=== PATIENT | female | born 1960 | race Two or more races ===

== ENCOUNTER → 2019-05-19 | Day surgery (SDC) | payer BC ==
[2019-05-16 09:28] LABS: Basophils # (auto) 0 uL; Basophils % (auto) 0.7 % (0.0-2.0); Eosinophils # (auto) 0.2 uL; Eosinophils % (auto) 6.1 % (0.0-7.0); Hematocrit 38.4 % (36.0-46.0); Hemoglobin 12.8 g/dL (12.2-16.2); Lymphocytes # (auto) 0.7 uL; Lymphocytes % (auto) 24.9 % (10.0-50.0); Mean Corpuscular Hemoglobin 30.8 pg (28.0-32.0); Mean Corpuscular Hgb Conc. 33.3 g/dL (32.0-36.0); Mean Corpuscular Volume 92.7 fL (80.0-100.0); Monocytes # (auto) 0.2 uL; Monocytes % (auto) 6.5 % (0.0-12.0); Neutrophils # (auto) 1.8 uL; Neutrophils % (auto) 61.8 % (37.0-80.0); Platelet Count (auto) 204 10^3/uL (140-450); Red Blood Cells 4.14 10^6/uL (4.0-5.20); Red Cell Distribution Width 13.7 % (11.8-14.3); White Blood Cell 2.8 10^3/uL (4.4-10.8)
[2019-05-16 09:30] LABS: Urine Bacteria NONE SEEN /hpf (None Seen); Urine Blood Negative /uL (Negative); Urine Mucus FEW (None Seen); Urine Specific Gravity 1.026 (1.001-1.035); Urine WBC 1 /hpf (0 - 5)
[2019-05-16 09:38] LABS: INR 1.06 (0.9-1.15); Partial Thromboplastin Time 27.5 sec (23.64-32.05)
[2019-05-16 10:51] LABS: Potassium 4.2 mmol/L (3.5-5.1)
[2019-05-16 10:58] LABS: BUN/Creatinine Ratio 35.4; Bilirubin, Total 0.5 mg/dL (0.2-1.0); Calcium 9.6 mg/dL (8.5-10.1); Total Protein 7.6 g/dL (6.4-8.2)
[~2019-05-19] VITALS: Ht 160 cm; Wt 51.3 kg
[~2019-05-19] MED LIST: BUPIVACAINE 0.25% INJ 50ML VIAL ONE; DexAMETHasone SOD PHOS 10MG/1ML VIAL INJ ONE; KETOROLAC TROMETH 30 MG/ML 1ML VIAL IV ONE; LABETALOL HCL 5 MG/ML 4ML SYRINGE IV PRN; MEPERIDINE HCL (25 MG/ML) 1ML VIAL ONE; MIDAZOLAM HCL 1MG/1ML-2 ML VIAL IV PRN; MIDAZOLAM HCL 1MG/1ML-2 ML VIAL ONE; MORPHINE SULFATE 4 MG/ML SYR/VIAL IV PRN; ONDANSETRON HCL 4 MG/2 ML VIAL IV PRN; ONDANSETRON HCL 4 MG/2 ML VIAL ONE; PROPOFOL 10 MG/ML 20 ML IV ONE; ceFAZolin 1GM/50ML 50 ML IV ONE; ePHEDrine SULFATE 50 MG/ML AMP IV PRN; fentaNYL CITRATE 100 MCG/2 ML VL ONE
[2019-05-19 11:49] VITALS: BP 121/67
== END | disposition home or self-care (01) ==
LOC: SUR 07:01
PROVIDERS: ATTEND Orthopaedic Surgery
DX: T84.84XA Pain due to internal orthopedic prosthetic devices, implants and grafts, initial encounter (principal); S82.841S Displaced bimalleolar fracture of right lower leg, sequela; D64.9 Anemia, unspecified; Z98.891 History of uterine scar from previous surgery; Z90.710 Acquired absence of both cervix and uterus; Z98.890 Other specified postprocedural states; X58.XXXS Exposure to other specified factors, sequela
CPT/HCPCS: 20680; 36415; 80053; 81001; 85025; 85610; 85730; J0690; J1100; J1885; J2175; J2250; J2270; J2405; J2704; J3010; J3490